=== PATIENT | female | born 1995 | race Caucasian/White ===

== ENCOUNTER 2018-07-08 18:06 | Emergency (ER) | payer OTHER ==
[2018-07-08 18:10] VITALS: RESP 18
--- NOTE | 2018-07-08 19:52 | ED ---
ENT HPI - General Chief complaint: ENT Stated complaint: ENT Time Seen by Provider: 07/08/18 18:34 Source: patient Mode of arrival: ambulatory Limitations: no limitations - History of Present Illness Initial comments: 23 year female who denies past focal history presents today for chief complaint of sore throat, cough and congestion. Patient states that since Saturday she has had these symptoms. She stated that the cough as been increasing at night. She states it is a dry cough, denying any production of sputum. Patient sates that she did have a low-grade fever of 99.7, and night sweats. Today patient noticed some bilateral ear pain. Patient denies any diarrhea, vomiting, nausea , abdominal pain, headache, body aches, IVDU, chest pain, shortness of breath, dyspnea upon exertion, recent antibiotic use. Pt is a 1/2ppd smoker. Remainder of ROS (-). Upon arrival pt VS within acceptable limits. - Related Data Previous Rx's Medication Instructions Recorded Loratadine-Pseudoeph 10-240 mg 1 each PO DAILY 5 Days #5 tab 07/08/18 [Claritin-D 24 Hr] Allergies Allergy/AdvReac Type Severity Reaction Status Date / Time No Known Allergies Allergy Verified 07/08/18 18:44 Review of Systems ROS Statement: Those systems with pertinent positive or pertinent negative responses have been documented in the HPI. ROS Other: All systems not noted in ROS Statement are negative. Constitutional: Reports: fever (low grade 99.7), chills ENT: Reports: ear pain, throat pain. Denies: dental pain, hearing loss Respiratory: Reports: cough. Denies: dyspnea, wheezes, hemoptysis, stridor Cardiovascular: Denies: chest pain, palpitations, dyspnea on exertion Gastrointestinal: Denies: abdominal pain, nausea, vomiting, diarrhea, constipation, hematemesis, melena, hematochezia Genitourinary: Denies: urgency, dysuria, frequency Skin: Denies: rash Neurological: Denies: headache, weakness, numbness, paresthesias, confusion, abnormal gait Past Medical History Past Medical History: No Reported History History of Any Multi-Drug Resistant Organisms: None Reported Past Surgical History: Hysterectomy Past Psychological History: No Psychological Hx Reported Smoking Status: Current every day smoker Past Alcohol Use History: Occasional Past Drug Use History: None Reported General Exam - General Exam Comments Initial Comments: General: The patient is awake and alert, in no distress, and does not appear acutely ill. Eye: Pupils are equal, round and reactive to light, extra-ocular movements are intact. No nystagmus. There is normal conjunctiva bilaterally. No signs of icterus. Full tympanic membranes not visualized bilaterally due to cerumen. However visualized portions. Membrane appeared nonerythematous, there is no evidence of effusion or retractions, No tenderess to palpation of mastoid b/l. External auditory canals normal limits bilaterally. Ears, nose, mouth and throat: There are moist mucous membranes and no oral lesions. Oropharygnx and tonsils are not erythematous, no tonsillar enlargement or exudates noted. There is postnasal drip. Neck: The neck is supple, there is no tenderness or JVD. No anterior cervical lymphadenopathy. Cardiovascular: There is a regular rate and rhythm. No murmur, rub or gallop is appreciated. Respiratory: No signs of retractions, cyanosis or respiratory distress. (-) [place] in all lung deluna. Lungs are clear to auscultation, respirations are non-labored, breath sounds are equal. No wheezes, stridor, rales, or rhonchi. Musculoskeletal: Normal ROM, no tenderness. Strength 5/5. Sensation intact. Pulses equal bilaterally 2+. Neurological: A&O x 3. CN II-XII intact, There are no obvious motor or sensory deficits. Coordination appears grossly intact. Speech is normal. Skin: Skin is warm and dry and no rashes or lesions are noted. Psychiatric: Cooperative, appropriate mood & affect, normal judgment. Limitations: no limitations Course Vital Signs 07/08/18 07/08/18 07/08/18 18:08 19:11 20:50 Temperature 97.5 F L 97.8 F 97.5 F L Pulse Rate 110 H 82 92 Respiratory 18 18 18 Rate Blood Pressure 105/64 107/53 110/54 O2 Sat by Pulse 100 100 100 Oximetry Medical Decision Making - Medical Decision Making CXR obtained revealing no acute cardiopulmonary process. Pt does not appear acutely ill, no PE findings concerning acute otitis media or strep pharyngitis. I feel b/l ear discomfort was most likely due to Eustachian tube dysfunction. Pt denied current ear pain upon examination. At this time I feel pt has a viral URI with cough and post nasal drip. Pt was given instruction for symptomatic care and PCP in 1-2 days as well as a prescription for claritin. Return parameters were discussed the patient agreed plan. Case discussed in detail with Dr. Chandler prior pt discharge. Pt requested work note upon d/c for tomorrow. Disposition Clinical Impression: Viral URI with cough Disposition: HOME SELF-CARE Condition: Good Instructions: Upper Respiratory Infection (ED), Viral Syndrome (ED) Additional Instructions: Please use medication as discussed. Please follow-up with family doctor in the next 2 days. Please return to emergency room if the symptoms increase or worsen or for any other concerns, as discussed. Prescriptions: Loratadine-Pseudoeph 10-240 mg [Claritin-D 24 Hr] 1 each PO DAILY 5 Days #5 tab Is patient prescribed a controlled substance at d/c from ED?: No Referrals: Sudhakar Jasso MD [Primary Care Provider] - 1-2 days Time of Disposition: 20:41
--- NOTE | 2018-07-08 20:28 | XR ---
EXAMINATION: XR chest 2V DATE AND TIME: 07/08/2018 7:54 PM CLINICAL INDICATION: Pain TECHNIQUE: PA and lateral COMPARISON: None. FINDINGS: The lungs are clear. The pleural spaces are negative. The cardiac silhouette is not enlarged. The remainder of the mediastinal silhouette is unremarkable. The skeletal structures and soft tissues are negative for acute findings. IMPRESSION: NO ACUTE PROCESS.
[2018-07-08 20:53] VITALS: BP 110/54; PULSE 92; TEMP 97.5
== END 2018-07-08 20:50 | disposition home or self-care (01) ==
LOC: EC 18:06
DX: J06.9 Acute upper respiratory infection, unspecified (principal); H92.03 Otalgia, bilateral; F17.210 Nicotine dependence, cigarettes, uncomplicated
CPT/HCPCS: 71046; 99283

== ENCOUNTER 2018-08-05 18:07 | Emergency (ER) | payer OTHER ==
[2018-08-05 18:14] VITALS: BP 109/63; PULSE 98; RESP 16; TEMP 98.1
[2018-08-05] MEDS ORDERED: ONDANSETRON 4 MG ODT STARTER PACK 2 TAB BTL PO STA (18:51)
--- NOTE | 2018-08-05 18:52 | ED ---
Nausea/Vomiting/Diarrhea HPI - General Chief complaint: Nausea/Vomiting/Diarrhea Stated complaint: Vomiting Time Seen by Provider: 08/05/18 18:19 Source: patient, RN notes reviewed, old records reviewed Mode of arrival: ambulatory Limitations: no limitations - History of Present Illness Initial comments: Patient is 23-year-old female presents emergency department today with 2.1 day of vomiting and diarrhea episodes. Patient states that she and her intent sleeping last night due to multiple episodes of vomiting. She has no significant past medical history. Surgical history includes hysterectomy. Patient states that she has had no fevers or chills. She denies any abdominal pain at this time. No history of sick contacts. She states that she had pizza last night prior to the onset of the vomiting. No be also been sick. Patient states she otherwise feels well. - Related Data Previous Rx's Medication Instructions Recorded Ondansetron Odt [Zofran Odt] 4 mg PO Q8HR PRN #12 tab 08/05/18 Allergies Allergy/AdvReac Type Severity Reaction Status Date / Time No Known Allergies Allergy Verified 08/05/18 18:34 Review of Systems ROS Statement: Those systems with pertinent positive or pertinent negative responses have been documented in the HPI. ROS Other: All systems not noted in ROS Statement are negative. Past Medical History Past Medical History: No Reported History History of Any Multi-Drug Resistant Organisms: None Reported Past Surgical History: Hysterectomy Past Psychological History: No Psychological Hx Reported Smoking Status: Current every day smoker Past Alcohol Use History: Occasional Past Drug Use History: None Reported General Exam - General Exam Comments Initial Comments: Patient is a well-appearing 23-year-old female. Alert and oriented 3. Patient appears in no acute distress. Limitations: no limitations General appearance: alert, in no apparent distress Head exam: Present: atraumatic, normocephalic, normal inspection Eye exam: Present: normal appearance, PERRL, EOMI. Absent: scleral icterus, conjunctival injection, periorbital swelling ENT exam: Present: normal exam, mucous membranes moist Neck exam: Present: normal inspection. Absent: tenderness, meningismus, lymphadenopathy Respiratory exam: Present: normal lung sounds bilaterally. Absent: respiratory distress, wheezes, rales, rhonchi, stridor Cardiovascular Exam: Present: regular rate, normal rhythm, normal heart sounds. Absent: systolic murmur, diastolic murmur, rubs, gallop, clicks GI/Abdominal exam: Present: soft, normal bowel sounds. Absent: distended, tenderness, guarding, rebound, rigid Extremities exam: Present: normal inspection, full ROM, normal capillary refill. Absent: tenderness, pedal edema, joint swelling, calf tenderness Back exam: Present: normal inspection Neurological exam: Present: alert, oriented X3, CN II-XII intact Psychiatric exam: Present: normal affect, normal mood Skin exam: Present: warm, dry, intact, normal color. Absent: rash Course Vital Signs 08/05/18 18:12 Temperature 98.1 F Pulse Rate 98 Respiratory 16 Rate Blood Pressure 109/63 O2 Sat by Pulse 100 Oximetry Medical Decision Making - Medical Decision Making 23-year-old female is well-appearing sensory shortness of 1 day of vomiting. She reports she did cough up work. She denies any abdominal pain. Abdomen is soft and nontender. Vital signs are stable she is afebrile. Patient denies any chance due to hysterectomy. Patient states that she would like to try nausea medication and declines an IV and blood work at this time. I will give the Patient a prescription for Zofran and given an oral starter pack here. Patient advised to have a bland diet for the next 24-48 hours. Patient agrees to treatment plan will comply. Return parameters were discussed. Disposition Clinical Impression: Nausea & vomiting Disposition: HOME SELF-CARE Condition: Good Additional Instructions: Patient is advised to have a clear liquid and bland diet for the next 24-48 hours. Use the nausea medication as directed. Return to the emergency department if any alarming signs or symptoms occur including fevers chills or abdominal pain. Prescriptions: Ondansetron Odt [Zofran Odt] 4 mg PO Q8HR PRN #12 tab PRN Reason: Nausea Is patient prescribed a controlled substance at d/c from ED?: No Referrals: Sudhakar Jasso MD [Primary Care Provider] - 1-2 days Time of Disposition: 18:51
== END 2018-08-05 19:28 | disposition home or self-care (01) ==
LOC: EC 18:07
DX: R11.2 Nausea with vomiting, unspecified (principal); R19.7 Diarrhea, unspecified; F17.200 Nicotine dependence, unspecified, uncomplicated
CPT/HCPCS: 99284; S0119

== ENCOUNTER → 2018-09-01 | Outpatient (CLI) | payer OTHER ==
[2018-09-01 17:58] LABS: Basophils # (A) 0.1 k/uL (0-0.2); Basophils % (A) 1 %; Eosinophils # (A) 0.7 k/uL (0-0.7); Eosinophils % (A) 7 %; HCT 43.5 % (34.0-46.0); HGB 14.1 gm/dL (11.4-16.0); Lymphocytes % (A) 32 %; MCH 31.3 pg (25.0-35.0); MCHC 32.3 g/dL (31.0-37.0); MCV 96.7 fL (80.0-100.0); Mean Platelet Volume 7.7; Monocytes # (A) 0.4 k/uL (0-1.0); Monocytes % (A) 4 %; Neutrophils # (A) 5.2 k/uL (1.3-7.7); Neutrophils % (A) 54 %; Platelet Count 259 k/uL (150-450); RDW 11.8 % (11.5-15.5); WBC 9.6 k/uL (3.8-10.6)
[2018-09-01 19:51] LABS: Erythrocyte Sedimentation Rate 2 mm/hr (0-20)
[2018-09-02 02:55] LABS: ALT 13 U/L (8-44); AST 23 U/L (13-35); Albumin/Globulin Ratio 3.08 (1.20-2.10); Alkaline Phosphatase 48 U/L (41-126); C Reactive Protein <0.4 mg/dL (0.0-0.8); Calcium 8.9 mg/dL (8.7-10.3); Carbon Dioxide 27.6 mmol/L (21.6-31.8); Chloride 110 mmol/L (96-109); Cholesterol 162 mg/dL (0-200); Creatine Kinase 91 U/L (26-186); Globulin 1.3 g/dL (2.1-3.7); Glucose 93 mg/dL (70-110); LDL Cholesterol,Calculated 101.8 mg/dL (0.0-131.0); Potassium 4.2 mmol/L (3.5-5.5); Sodium 140 mmol/L (135-145); Total Bilirubin 0.6 mg/dL (0.3-1.2); Total Protein 5.3 g/dL (6.2-8.2)
[2018-09-02 05:51] LABS: Hemoglobin A1C 4.7 % (4.0-6.0)
== END | disposition home or self-care (01) ==
LOC: LABWHC1 17:06
PROVIDERS: ATTEND Internal Medicine
DX: D64.9 Anemia, unspecified (principal); J44.9 Chronic obstructive pulmonary disease, unspecified; E11.9 Type 2 diabetes mellitus without complications; E78.5 Hyperlipidemia, unspecified; E05.90 Thyrotoxicosis, unspecified without thyrotoxic crisis or storm; F17.200 Nicotine dependence, unspecified, uncomplicated
CPT/HCPCS: 36415; 80053; 80061; 82306; 82550; 83036; 84443; 85025; 85652; 86140

== ENCOUNTER → 2018-09-15 | Outpatient (CLI) | payer OTHER ==
--- NOTE | 2018-09-16 06:26 | XR ---
EXAMINATION TYPE: XR pelvis AP view DATE OF EXAM: 09/15/2018 CLINICAL HISTORY: Pelvic and back pain with sciatica TECHNIQUE: A single AP view of the pelvis is obtained. COMPARISON: None. FINDINGS: There is no acute fracture/dislocation evident in the pelvis. The hip and sacroiliac join ts appear symmetric and unremarkable. The overlying soft tissue appears unremarkable. IMPRESSION: Unremarkable study.
--- NOTE | 2018-09-16 06:27 | XR ---
EXAMINATION TYPE: XR lumbosacral spine min 4V DATE OF EXAM: 09/15/2018 CLINICAL HISTORY: Chronic low back pain and sciatica TECHNIQUE: Frontal, lateral, and oblique images of the lumbar spine are obtained. COMPARISON: Lumbar spine x-ray May 05, 2015 FINDINGS: There are 5 lumbar type vertebral bodies redemonstrated. The lumbar spine shows satisfact ory alignment without evidence of acute fracture or dislocation. Vertebral body heights and disk spac e heights are within normal limits. The oblique images appear within normal limits. The overlying soft tissue appears unremarkable. IMPRESSION: Unremarkable study. No significant change from prior.
--- NOTE | 2018-09-16 06:28 | XR ---
EXAMINATION TYPE: XR sacroiliac joint comp BILAT DATE OF EXAM: 09/15/2018 COMPARISON: NONE HISTORY: Chronic low back pain and sciatica without injury. TECHNIQUE: Frontal and oblique images of bilateral sacroiliac joints are obtained. FINDINGS: Sacroiliac joints appear symmetric and within normal limits. No suspicious narrowing or spu rring is identified. No suspicious sclerosis is seen. Overlying soft tissue is unremarkable. IMPRESSION: Unremarkable study. If clinical concern for sacroiliitis remains present further investig ation with MRI study may be warranted.
== END | disposition home or self-care (01) ==
LOC: RADXRMAIN 16:30
PROVIDERS: ATTEND Internal Medicine
DX: M54.40 Lumbago with sciatica, unspecified side (principal)
CPT/HCPCS: 72110; 72170; 72202